=== PATIENT | female | born 2000 ===

== ENCOUNTER 2023-07-22 11:30 | Outpatient (CLI) | payer OTHER ==
[2023-07-22 12:26] LABS: ALT (SGPT) 17 U/L (8-55); AST (SGOT) 19 U/L (5-34); Albumin 4.7 g/dL (3.5-5.0); Alkaline Phosphatase 69 U/L (40-110); Anion Gap 17 mmol/L (10-20); BUN (Urea Nitrogen) 16 mg/dL (7.0-18.7); Bilirubin, Total 0.8 mg/dL (0.2-1.2); Calc. Creatinine Clearance 0 mL/min (70-130); Calcium 9.6 mg/dL (7.8-10.44); Carbon Dioxide 22 mmol/L (22-29); Cardiac Risk 5.9 (Less than 4.5); Chloride 106 mmol/L (98-107); Cholesterol 188 mg/dl (< 200 Desired); Estimated GFR 97; Globulin 2.8 g/dL (2.4-3.5); Glucose 104 mg/dL (70-105); HDL Cholesterol 32 mg/dL (>60 Neg Risk); LDL Cholesterol, Calculated 136 mg/dL; Potassium 4.7 mmol/L (3.5-5.1); Protein, Total 7.5 g/dL (6.0-8.3); Sodium 140 mmol/L (136-145); Triglycerides 99 mg/dL (Less than 150)
[2023-07-22 19:20] LABS: Syphilis Antibody Nonreactive (Nonreactive); Syphilis Antibody Index 0.08 S/CO (<1.00 Non-Reactive)
== END 2023-07-22 11:31 | disposition home or self-care (01) ==
LOC: MADLABBHPM 11:30
PROVIDERS: ATTEND Nurse Practitioner Family
DX: E78.1 Pure hyperglyceridemia (principal); K76.0 Fatty (change of) liver, not elsewhere classified; R76.8 Other specified abnormal immunological findings in serum
CPT/HCPCS: 80053; 80061; 86780